=== PATIENT | female | born 1940 | race Caucasian/White ===

== ENCOUNTER 2016-08-05 10:32 | Emergency (ER) | payer MEDICARE ==
--- NOTE | 2016-08-05 10:47 | ER Document Report ---
ED Medical Screen (RME) - General Chief Complaint: Leg Swelling Stated Complaint: LEG SWELLING/PITTING/LEAKING FLUID Time seen by provider: 10:44 Mode of Arrival: Ambulatory Information source: Patient Notes: 75 yo female presents to ed for fluid draining out of her legs , pitting edema. with a history of this in the past. TRAVEL OUTSIDE OF THE [place] IN LAST 30 DAYS: No - HPI Onset: Other - legs started leaking last night Onset/Duration: Persistent Quality of pain: Dull - back pain Severity: Moderate Pain Level: 4 Associated Symptoms: Other - back pain Exacerbated by: Denies Relieved by: Denies Similar symptoms previously: Yes Recently seen / treated by doctor: No - Related Data Smoking: Non-smoker Frequency of alcohol use: None Drug Abuse: None Allergies/Adverse Reactions: No Known Drug Allergies Allergy (Verified 06/24/13 13:14) Past Medical History - Past Medical History Cardiac Medical History: Reports: Hx Coronary Artery Disease, Hx Hypercholesterolemia, Hx Hypertension Denies: Hx Heart Attack Pulmonary Medical History: Denies: Hx Asthma, Hx Bronchitis, Hx COPD, Hx Pneumonia Neurological Medical History: Denies: Hx Cerebrovascular Accident, Hx Seizures GI Medical History: Reports: Hx Gastroesophageal Reflux Disease, Hx Ulcer Musculoskeltal Medical History: Reports Hx Arthritis Past Surgical History: Reports: Hx Cholecystectomy, Hx Hysterectomy, Hx Orthopedic Surgery - back surery - Immunizations Hx Diphtheria, Pertussis, Tetanus Vaccination: No Physical Exam - Vital signs Vitals: Temp Pulse Resp BP Pulse Ox 97.9 F 75 18 126/91 H 95 08/05/16 10:41 08/05/16 10:41 08/05/16 10:41 08/05/16 10:41 08/05/16 10:41 Course - Vital Signs Vital signs: Temp Pulse Resp BP Pulse Ox 97.9 F 75 18 126/91 H 95 08/05/16 10:41 08/05/16 10:41 08/05/16 10:41 08/05/16 10:41 08/05/16 10:41
[2016-08-05 11:37] LABS: APPEARANCE,URINE CLEAR; BILIRUBIN,URINE NEGATIVE (NEGATIVE); GLUCOSE, URINE NEGATIVE (NEGATIVE); KETONES,URINE NEGATIVE (NEGATIVE); LEUKOCYTE ESTERASE,URINE SMALL (NEGATIVE); NITRITE,URINE NEGATIVE (NEGATIVE); PROTEIN,URINE NEGATIVE (NEGATIVE); URINE SPECIFIC GRAVITY 1.009; UROBILINOGEN,URINE NEGATIVE mg/dL (<2.0)
[2016-08-05 12:00] LABS: ABSOLUTE BASOPHILS # (AUTO) 0.1 10^3/uL (0.0-0.2); ABSOLUTE EOSINOPHILS # (AUTO) 0.4 10^3/uL (0.0-0.6); ABSOLUTE MONOCYTES (AUTO) 0.9 10^3/uL (0.1-1.4); ABSOLUTE NEUT (AUTO) 2.8 10^3/uL (1.7-8.2); BASOPHILS % (AUTO) 1.5 % (0-2); HEMATOCRIT 34.2 % (36.0-47.0); HEMOGLOBIN 11.2 g/dL (12.0-15.5); HGB HCT DIFFERENCE -0.6; LYMPHOCYTES % (AUTO) 32.4 % (13-45); MEAN CORPUSCULAR HEMOGLOBIN 28.6 pg (27.0-33.4); MEAN CORPUSCULAR HGB CONC 32.7 g/dL (32.0-36.0); MEAN CORPUSCULAR VOLUME 88 fl (80-97); MONOCYTES % (AUTO) 14.4 % (3-13); RED BLOOD COUNT 3.91 10^6/uL (3.72-5.28); RED CELL DISTRIBUTION WIDTH 15.8 % (11.5-14.0); SEGMENTED NEUTROPHILS % (AUTO) 45.7 % (42-78); WHITE BLOOD COUNT 6.1 10^3/uL (4.0-10.5)
[2016-08-05 12:11] LABS: ALANINE AMINOTRANSFERASE 30 U/L (9-52); ALBUMIN 4.3 g/dL (3.5-5.0); ALKALINE PHOSPHATASE 77 U/L (38-126); ANION GAP 12 (5-19); ASPARTATE AMINO TRANSFERASE 27 U/L (14-36); BILIRUBIN,TOTAL 0.4 mg/dL (0.2-1.3); BLOOD UREA NITROGEN 17 mg/dL (7-20); CALCIUM 10.1 mg/dL (8.4-10.2); CARBON DIOXIDE 27 mmol/L (22-30); CHLORIDE 102 mmol/L (98-107); CREATININE RESULT 1.23 mg/dL (0.52-1.25); GLUCOSE 84 mg/dL (75-110); POTASSIUM 4.7 mmol/L (3.6-5.0); SODIUM 141.3 mmol/L (137-145); TOTAL PROTEIN 7.3 g/dL (6.3-8.2)
--- NOTE | 2016-08-05 14:07 | ER Document Report ---
ED General - General Chief Complaint: Edema Stated Complaint: LEG SWELLING Mode of Arrival: Ambulatory TRAVEL OUTSIDE OF THE [place] IN LAST 30 DAYS: No - HPI Patient complains to provider of: leg swelling weeping of fluid Notes: Patient with a history of [place] states that now fluids weeping our legs. Patient points to 2 small areas bilateral legs less than half a centimeter with very minimal loss of fluids. Patient states not been compliant with elevating her legs not been compliant with her Lasix denies shortness of breath denies recent travel. Referred to the ER by PCP - Related Data Allergies/Adverse Reactions: No Known Drug Allergies Allergy (Verified 08/05/16 11:00) Past Medical History - General Information source: Patient - Social History Smoking Status: Former Smoker Chew tobacco use (# tins/day): No Frequency of alcohol use: None Drug Abuse: None Family History: Reviewed & Not Pertinent Patient has suicidal ideation: No Patient has homicidal ideation: No - Past Medical History Cardiac Medical History: Reports: Hx Coronary Artery Disease, Hx Hypercholesterolemia, Hx Hypertension Denies: Hx Heart Attack Pulmonary Medical History: Denies: Hx Asthma, Hx Bronchitis, Hx COPD, Hx Pneumonia Neurological Medical History: Denies: Hx Cerebrovascular Accident, Hx Seizures GI Medical History: Reports: Hx Gastroesophageal Reflux Disease, Hx Ulcer Musculoskeltal Medical History: Reports Hx Arthritis Past Surgical History: Reports: Hx Cholecystectomy, Hx Hysterectomy, Hx Orthopedic Surgery - back surery - Immunizations Hx Diphtheria, Pertussis, Tetanus Vaccination: Yes Hx Pneumococcal Vaccination: 08/01/09 Review of Systems - Review of Systems Constitutional: No symptoms reported EENT: No symptoms reported Cardiovascular: No symptoms reported Respiratory: No symptoms reported Gastrointestinal: No symptoms reported Genitourinary: No symptoms reported Female Genitourinary: No symptoms reported Musculoskeletal: Leg swelling Skin: No symptoms reported Hematologic/Lymphatic: No symptoms reported Neurological/Psychological: No symptoms reported -: Yes All other systems reviewed and negative Physical Exam - Vital signs Vitals: Temp Pulse Resp BP Pulse Ox 97.9 F 75 18 126/91 H 95 08/05/16 10:41 08/05/16 10:41 08/05/16 10:41 08/05/16 10:41 08/05/16 10:41 Interpretation: Normal - General General appearance: Appears well, Alert - HEENT Head: Normocephalic, Atraumatic Eyes: Normal Pupils: PERRL - Respiratory Respiratory status: No respiratory distress Chest status: Nontender Breath sounds: Normal Chest palpation: Normal - Cardiovascular Rhythm: Regular Heart sounds: Normal auscultation Murmur: No - Abdominal Inspection: Normal Distension: No distension Bowel sounds: Normal Tenderness: Nontender Organomegaly: No organomegaly - Back Back: Normal, Nontender - Extremities General upper extremity: Normal inspection, Nontender, Normal color, Normal ROM , Normal temperature General lower extremity: Normal inspection, Nontender, Edema - Bilateral pitting edema right greater than left right approximately 2+ left 1+ the right leg does have increased swelling along the calf to is well bilateral calf tenderness., Normal color, Normal ROM, Normal temperature, Normal weight bearing - Neurological Neuro grossly intact: Yes Cognition: Normal Orientation: AAOx4 Gianluca Coma Scale Eye Opening: Spontaneous [place] Coma Scale Verbal: Oriented Gianluca Coma Scale Motor: Obeys Commands [place] Coma Scale Total: 15 Speech: Normal Motor strength normal: LUE, RUE, LLE, RLE Sensory: Normal - Psychological Associated symptoms: Normal affect, Normal mood - Skin Skin Temperature: Warm Skin Moisture: Dry Skin Color: Normal Course - Re-evaluation Re-evalutation: 08/05/16 16:20 Dopplers negative for DVT. Basic lab work negative for any acute pathology. Patient was educated about increasing her Lasix and the proper diet. Patient states understanding compression stockings giving patient with discharged home. - Vital Signs Vital signs: Temp Pulse Resp BP Pulse Ox 98.4 F 65 20 112/56 L 97 08/05/16 14:19 08/05/16 14:19 08/05/16 14:19 08/05/16 14:19 08/05/16 14:19 - Laboratory Result Diagrams: 08/05/16 11:40 08/05/16 11:40 Laboratory results interpreted by me: 08/05/16 08/05/16 08/05/16 11:06 11:40 11:40 Hgb 11.2 L Hct 34.2 L RDW 15.8 H Monocytes % 14.4 H Est GFR ( Amer) 52 L Est GFR (Non-Af Amer) 43 L Ur Leukocyte Esterase SMALL H Discharge - Discharge Clinical Impression: Peripheral edema Condition: Good Disposition: HOME, SELF-CARE Instructions: Edema, Peripheral ([facility]) Additional Instructions: I would increase your Lasix to 20 mg twice a day for the next 3 days and return to her normal schedule of 20 mg once a day. Your lab work and Doppler studies showed no acute pathology. Please make sure that she follow-up with your PCP. Prescriptions: Compression Socks, Medium [Futuro Restoring] 1 each MC DAILY #1 each Furosemide [Lasix 20 mg Tablet] 20 mg PO BID #6 tablet Forms: Return to Work Referrals: LAUREANO FARRELL MD [Primary Care Provider] - Follow up as needed
[2016-08-05 14:24] VITALS: BP 112/56
--- NOTE | 2016-08-05 16:41 | XCELERA REPORT ---
[address] [address] Lower Extremity Venous Evaluation Name: RYAN PÉREZ Age: 75 yrs Gender: Female : 1940 Patient Status: Emergency Patient Location: ER Study Date: 08/05/2016 01:06 PM Procedure: Color flow and duplex imaging bilaterally of the veins of the lower extremities as well as the Common Femoral veins. Reason For Study: bilateral leg pain swelling Ordering Physician: VIRGINIE SANTAMARIA Performed By: Rj Pickens Right Sided Venous Evaluation Normal vessel filling wall to wall, compression and augmentation as well as Colour flow down to the infrageniculate veins. Left Sided Venous Evaluation Normal vessel filling wall to wall, compression and augmentation as well as Colour flow down to the infrageniculate veins. Critical Findings Called in to Akilah Rosales in the ER at about 1400. Interpretation Summary No duplex evidence of DVT or obstruction in the bilateral lower extremities. : VIRGINIE SANTAMARIA > Eb Potter
== END 2016-08-05 14:24 | disposition home or self-care (01) ==
LOC: ER 10:32
DX: R60.0 Localized edema (principal); M79.89 Other specified soft tissue disorders; Z87.891 Personal history of nicotine dependence
CPT/HCPCS: 36415; 80053; 81001; 85025; 93970; 99284

== ENCOUNTER → 2016-10-28 | Outpatient (CLI) | payer MEDICARE ==
--- NOTE | 2016-10-28 21:57 | XCELERA REPORT ---
[address] [address] Transthoracic Echocardiogram Report Name: RYAN PÉREZ Age: 76 yrs Gender: Female : 1940 Patient Status: Outpatient Patient Location: Study Date: 10/28/2016 07:55 AM Height: 65 in Weight: 198 lb BSA: 2.0 m2 Procedure: A complete two-dimensional transthoracic echocardiogram was performed (2D, M-mode, spectral and color flow Doppler). The study was technically difficult with many images being suboptimal in quality. Reason For Study: AI Ordering Physician: KIMBERLY RENEE PA-C Performed By: Rosalie James Interpretation Summary The left ventricular ejection fraction is normal. Doppler measurements suggest pseudonormalized left ventricular relaxation, which is associated with grade II/IV or mild to moderate diastolic dysfunction There is borderline concentric left ventricular hypertrophy. The left ventricle is grossly normal size. Wall motion cannot be accurately commented on, but no definite regional wall motion abnormalities noted. The right ventricle is mildly dilated. The right ventricle appears to be hypertrophied The right ventricular systolic function is normal. The right atrium is mildly dilated. The left atrium is borderline dilated. There is no mitral valve stenosis. There is a mild amount of mitral regurgitation There is moderate aortic stenosis There is a peak gradient of 40 mean 20 mm of Hg. There is a mild to moderate amount of aortic regurgitation There is a trace to mild amount of tricuspid regurgitation There is mild pulmonary hypertension by echo Right ventricular systolic pressure is estimated to be elevated at 30- 40mmHg. There is no pericardial effusion. MMode/2D Measurements \T\ Calculations RVDd: 3.8 cm LVIDd: 4.4 cm FS: 47.3 % Ao root diam: 2.6 cm IVSd: 0.82 cm LVIDs: 2.3 cm EDV(Teich): 87.8 ml LVPWd: 0.73 cmESV(Teich): 18.5 ml Ao root area: 5.2 cm2 EF(Teich): 78.9 % LA dimension: 3.6 cm LVOT diam: 1.8 cm LVOT area: 2.7 cm2 Doppler Measurements \T\ Calculations MV E max darby: MV P1/2t max darby: Ao V2 max: AI max darby: 123.9 cm/sec 123.9 cm/sec 313.7 cm/sec 435.9 cm/sec MV A max darby: MV P1/2t: 66.3 msec Ao max PG: AI max P.0 cm/sec MVA(P1/2t): 3.3 cm2 39.4 mmHg 76.0 mmHg MV E/A: 1.1 MV dec slope: Ao V2 mean: AI dec slope: 547.6 cm/sec2 206.6 cm/sec 223.6 cm/sec2 Ao mean PG: AI P1/2t: 19.6 mmHg 570.8 msec Ao V2 VTI: 72.7 cm LEYLA(I,D): 1.2 cm2 LEYLA(V,D): 1.1 cm2 LV V1 max PG: SV(LVOT): 89.1 ml PA V2 max: TR max darby: 7.4 mmHg 79.0 cm/sec 274.2 cm/sec LV V1 mean PG: PA max PG: TR max P.7 mmHg 2.5 mmHg 30.1 mmHg LV V1 max: 135.7 cm/sec LV V1 mean: 89.2 cm/sec LV V1 VTI: 33.6 cm Left Ventricle The left ventricle is grossly normal size. There is borderline concentric left ventricular hypertrophy. The left ventricular ejection fraction is normal. Doppler measurements suggest pseudonormalized left ventricular relaxation, which is associated with grade II/IV or mild to moderate diastolic dysfunction. Wall motion cannot be accurately commented on, but no definite regional wall motion abnormalities noted. Right Ventricle The right ventricle is mildly dilated. The right ventricle appears to be hypertrophied. The right ventricular systolic function is normal. Atria The right atrium is mildly dilated. The left atrium is borderline dilated. Interarterial septum not well visualized and not well dopplered. Cannot comment on ASD/PFO presence. Mitral Valve There is moderate mitral annular calcification. There is no mitral valve stenosis. There is a mild amount of mitral regurgitation. Aortic Valve The aortic valve is moderately calcified. There is moderate aortic stenosis. There is a peak gradient of 40 mean 20 mm of Hg. There is a mild to moderate amount of aortic regurgitation. Tricuspid Valve The tricuspid valve is not well visualized secondary to technical limitations. There is no tricuspid stenosis. There is a trace to mild amount of tricuspid regurgitation. There is mild pulmonary hypertension by echo. Right ventricular systolic pressure is estimated to be elevated at 30-40mmHg. Pulmonic Valve The pulmonic valve is not well visualized. Great Vessels The aortic root is not well visualized but is probably normal size. The inferior vena cava appeared normal and decreased > 50% with respiration (RAP 5-10 mmHg). Effusions There is no pericardial effusion. : KIMBERLY RENEE PA-C > Safia Kincaid
== END ==
LOC: SP 07:47
PROVIDERS: ATTEND Physician Assistant
DX: I35.1 Nonrheumatic aortic (valve) insufficiency (principal)
CPT/HCPCS: 93306

== ENCOUNTER → 2017-01-07 | Outpatient (CLI) | payer MEDICARE ==
--- NOTE | 2017-01-07 08:36 | RADIOLOGY REPORT (SQ) ---
EXAM DESCRIPTION: LUMBAR SPINE COMPLETE COMPLETED DATE/TIME: 01/07/2017 8:17 am REASON FOR STUDY: OTHER INTERVERTEBRAL DISC DEGENERATION, LUMBAR REGION M51.36 OTHER INTERVERTEBRAL DISC DEGENERATION, LUMBAR REGION COMPARISON: 09/12/2014 NUMBER OF VIEWS: Five views including obliques. TECHNIQUE: AP, lateral, oblique, and sacral radiographic images acquired of the lumbar spine. LIMITATIONS: None. FINDINGS: MINERALIZATION: Normal. SEGMENTATION: Normal. No transitional anatomy. ALIGNMENT: There is anterolisthesis of L4 on L5 this is unchanged. VERTEBRAE: Maintained height. No fracture or worrisome bone lesion. DISCS: There is multilevel disc space narrowing as well as endplate changes. POSTERIOR ELEMENTS: Pedicles and facets are intact. No pars defect or posterior arch defects. HARDWARE: There are postsurgical changes at the 4 5 level with pedicle screws in place. PARASPINAL SOFT TISSUES: Normal. PELVIS: Intact as visualized. No fractures or worrisome bone lesions. SI joints intact. OTHER: No other significant finding. IMPRESSION: Postsurgical and degenerative changes throughout the lumbar spine. No acute findings. TECHNICAL DOCUMENTATION: JOB ID: [id number] [employer]- All Rights Reserved
== END ==
LOC: OD 07:58
PROVIDERS: ATTEND Pain Medicine Pain Medicine
DX: M51.36 Other intervertebral disc degeneration, lumbar region (principal)
CPT/HCPCS: 72110

== ENCOUNTER → 2017-01-10 | Outpatient (CLI) | payer MEDICARE ==
[2017-01-10 09:20] LABS: ABSOLUTE BASOPHILS # (AUTO) 0.1 10^3/uL (0.0-0.2); ABSOLUTE EOSINOPHILS # (AUTO) 0.7 10^3/uL (0.0-0.6); ABSOLUTE LYMPHOCYTES (AUTO) 1.9 10^3/uL (0.5-4.7); ABSOLUTE MONOCYTES (AUTO) 0.7 10^3/uL (0.1-1.4); ABSOLUTE NEUT (AUTO) 3.2 10^3/uL (1.7-8.2); EOSINOPHILS % (AUTO) 10.2 % (0-6); HEMATOCRIT 36.9 % (36.0-47.0); HEMOGLOBIN 11.9 g/dL (12.0-15.5); HGB HCT DIFFERENCE -1.2; LYMPHOCYTES % (AUTO) 29.9 % (13-45); MEAN CORPUSCULAR HEMOGLOBIN 30.5 pg (27.0-33.4); MEAN CORPUSCULAR HGB CONC 32.3 g/dL (32.0-36.0); MEAN CORPUSCULAR VOLUME 95 fl (80-97); MONOCYTES % (AUTO) 10.6 % (3-13); RED BLOOD COUNT 3.91 10^6/uL (3.72-5.28); RED CELL DISTRIBUTION WIDTH 15.4 % (11.5-14.0); SEGMENTED NEUTROPHILS % (AUTO) 48.3 % (42-78); WHITE BLOOD COUNT 6.5 10^3/uL (4.0-10.5)
[2017-01-10 09:48] LABS: ALBUMIN 4.1 g/dL (3.5-5.0); ANION GAP 11 (5-19); BLOOD UREA NITROGEN 23 mg/dL (7-20); CALCIUM 10.2 mg/dL (8.4-10.2); CARBON DIOXIDE 25 mmol/L (22-30); CHLORIDE 106 mmol/L (98-107); CREATININE RESULT 1.12 mg/dL (0.52-1.25); GLUCOSE 96 mg/dL (75-110); PHOSPHORUS 3.7 mg/dL (2.5-4.5); POTASSIUM 5.1 mmol/L (3.6-5.0); SODIUM 142.2 mmol/L (137-145)
[2017-01-10 09:54] LABS: APPEARANCE,URINE CLEAR; BILIRUBIN,URINE NEGATIVE (NEGATIVE); GLUCOSE, URINE NEGATIVE (NEGATIVE); KETONES,URINE NEGATIVE (NEGATIVE); LEUKOCYTE ESTERASE,URINE SMALL (NEGATIVE); NITRITE,URINE NEGATIVE (NEGATIVE); PROTEIN,URINE NEGATIVE (NEGATIVE); URINE SPECIFIC GRAVITY 1.013; UROBILINOGEN,URINE NEGATIVE mg/dL (<2.0)
[2017-01-10 10:31] LABS: URINE CREATININE 23.8 mg/dL (15-278)
[2017-01-10 10:38] LABS: CREATININE 1.12 mg/dL (0.52-1.25)
[2017-01-11 08:04] LABS: VITAMIN D 25-HYDROXY 22.5 ng/mL (30.0-100.0)
[2017-01-11 14:41] LABS: ALBUMIN 3 3.7 g/dL (2.9-4.4); ALPHA-1-GLOBULIN 0.3 g/dL (0.0-0.4); ALPHA-2-GLOBULIN 3 0.7 g/dL (0.4-1.0); BETA GLOBULIN 1.2 g/dL (0.7-1.3); GLOBULIN TTL 3.2 g/dL (2.2-3.9); IMMUNOGLOBULIN A 229 mg/dL (64-422); IMMUNOGLOBULIN G 1077 mg/dL (700-1600); IMMUNOGLOBULIN M 61 mg/dL (26-217); MONOCLONAL-SPIKE Not Observed g/dL (Not Observed); PROTEIN TOTAL SERUM 6.9 g/dL (6.0-8.5)
[2017-01-12 17:37] LABS: M-SPIKE % URINE Not Observed % (Not Observed); PROTEIN TOTAL UR 24HR <8 mg/24 hr (30-150)
== END ==
LOC: OD 08:08
PROVIDERS: ATTEND Internal Medicine Nephrology
DX: N18.3 Chronic kidney disease, stage 3 (moderate) (principal)
CPT/HCPCS: 36415; 80069; 81001; 82306; 82575; 83970; 84156; 84166; 85025; 86320; 86325

== ENCOUNTER 2017-09-15 07:53 | Day surgery (SDC) | payer MEDICARE, MEDICAID ==
[2017-09-15 09:10] LABS: INTERNATIONAL RATION (INR) 1.08; PARTIAL THROMBOPLASTIN TIME 30.3 SEC (23.5-35.8); PROTHROMBIN TIME 14.8 SEC (11.4-15.4)
--- NOTE | 2017-09-15 11:29 | RADIOLOGY REPORT (SQ) ---
EXAM DESCRIPTION: MYELOGRAM LUMBAR; CT LUMBAR SPINE WITH COMPLETED DATE/TIME: 09/15/2017 11:05 am; 09/15/2017 11:11 am REASON FOR STUDY: RADICULOPATHY LUMBAR REGION M54.16 RADICULOPATHY, LUMBAR REGION Z79.01 ALF (CURRENT) USE OF ANTICOAGULANTS COMPARISON: None. FLUOROSCOPY TIME: 1.4 minutes TECHNIQUE: Fluoroscopic guided lumbar myelogram. LIMITATIONS: None. PROCEDURE: After written consent and assessment were obtained, the patient was brought into the fluo roscopy room and placed prone on the table. The patient's lower back was prepped in a sterile fashio n and an entry site was selected under live fluoroscopic guidance. The entry site was anesthetized wi th 1% lidocaine. The spinal needle was advanced through the skin and into the thecal sac at the level of L3-4. Contrast was injected into the thecal sac. Following the procedure the needle was removed and a sterile bandage was placed of the site. CONTRAST: 14 mL Isovue 200M. IMAGES ACQUIRED: Multiple fluoroscopic and lateral plain film. TECHNIQUE: After performing lumbar myelogram, axial images were acquired through the lumbar spine wi thout intravenous contrast. Images reviewed with lung, soft tissue and bone windows. Reconstructed coronal and sagittal MPR images reviewed. All images stored on PACS. All CT scanners at this facility use dose modulation, iterative reconstruction, and/or weight based d osing when appropriate to reduce radiation dose to as low as reasonably achievable (ALARA). [facility]: Dose Right [facility]: CareDose [facility]: Dose Right [facility]: Teradose 4D [facility]: [employer] FINDINGS: Fluoroscopic images demonstrate prior posterior decompression and fusion L4-5. Deviation of the contrast column consistent with mild spinal stenosis at L2- 3 and L3-4. No instability on f lexion and extension. CT images demonstrate a mild S-shaped scoliosis. Grade 1 anterolisthesis of L4 relative to L5. At L 1-2, there is disc bulging without significant stenosis. At L2-3, there is mild -moderate spinal stenosis due to disc osteophyte complex and facet arthropathy . Vacuum disc and chronic endplate change. At L3-4, there is disc space narrowing and vacuum disc. Mild -moderate spinal stenosis. At L4- 5 there has been posterior decompression. The canal is widely patent. L5-S1 there is disc space narrowing, vacuum disc and chronic endplate change. Mild spinal stenosis d ue associated with bulging disc and facet arthropathy. IMPRESSION: Spondylosis, facet arthropathy and malalignment. Mild -moderate spinal stenosis L2-3 an d L3-4 status post posterior decompression L4-5. COMMENT: Patient medication list reviewed: Yes- Quality ID# [id number]:Eligible professional attests to doc umenting in the medical record they obtained, updated, or reviewed the patient's current medications. TECHNICAL DOCUMENTATION: JOB ID: [id number] Quality ID # [id number]: Final reports with documentation of one or more dose reduction techniques (e.g., Au tomated exposure control, adjustment of the mA and/or kV according to patient size, use of iterative reconstruction technique) 2010 [employer]- All Rights Reserved
--- NOTE | 2017-09-15 11:29 | RADIOLOGY REPORT (SQ) ---
EXAM DESCRIPTION: MYELOGRAM LUMBAR; CT LUMBAR SPINE WITH COMPLETED DATE/TIME: 09/15/2017 11:05 am; 09/15/2017 11:11 am REASON FOR STUDY: RADICULOPATHY LUMBAR REGION M54.16 RADICULOPATHY, LUMBAR REGION Z79.01 [facility] (CURRENT) USE OF ANTICOAGULANTS COMPARISON: None. FLUOROSCOPY TIME: 1.4 minutes TECHNIQUE: Fluoroscopic guided lumbar myelogram. LIMITATIONS: None. PROCEDURE: After written consent and assessment were obtained, the patient was brought into the fluo roscopy room and placed prone on the table. The patient's lower back was prepped in a sterile fashio n and an entry site was selected under live fluoroscopic guidance. The entry site was anesthetized wi th 1% lidocaine. The spinal needle was advanced through the skin and into the thecal sac at the level of L3-4. Contrast was injected into the thecal sac. Following the procedure the needle was removed and a sterile bandage was placed of the site. CONTRAST: 14 mL Isovue 200M. IMAGES ACQUIRED: Multiple fluoroscopic and lateral plain film. TECHNIQUE: After performing lumbar myelogram, axial images were acquired through the lumbar spine wi thout intravenous contrast. Images reviewed with lung, soft tissue and bone windows. Reconstructed coronal and sagittal MPR images reviewed. All images stored on PACS. All CT scanners at this facility use dose modulation, iterative reconstruction, and/or weight based d osing when appropriate to reduce radiation dose to as low as reasonably achievable (ALARA). [facility]: Dose Right [facility]: CareDose [facility]: Dose Right [facility]: Teradose 4D [facility]: [employer] FINDINGS: Fluoroscopic images demonstrate prior posterior decompression and fusion L4-5. Deviation of the contrast column consistent with mild spinal stenosis at L2- 3 and L3-4. No instability on f lexion and extension. CT images demonstrate a mild S-shaped scoliosis. Grade 1 anterolisthesis of L4 relative to L5. At L 1-2, there is disc bulging without significant stenosis. At L2-3, there is mild -moderate spinal stenosis due to disc osteophyte complex and facet arthropathy . Vacuum disc and chronic endplate change. At L3-4, there is disc space narrowing and vacuum disc. Mild -moderate spinal stenosis. At L4- 5 there has been posterior decompression. The canal is widely patent. L5-S1 there is disc space narrowing, vacuum disc and chronic endplate change. Mild spinal stenosis d ue associated with bulging disc and facet arthropathy. IMPRESSION: Spondylosis, facet arthropathy and malalignment. Mild -moderate spinal stenosis L2-3 an d L3-4 status post posterior decompression L4-5. COMMENT: Patient medication list reviewed: Yes- Quality ID# [id number]:Eligible professional attests to doc umenting in the medical record they obtained, updated, or reviewed the patient's current medications. TECHNICAL DOCUMENTATION: JOB ID: [id number] Quality ID # [id number]: Final reports with documentation of one or more dose reduction techniques (e.g., Au tomated exposure control, adjustment of the mA and/or kV according to patient size, use of iterative reconstruction technique) 2010 [employer]- All Rights Reserved
[2017-09-15 13:25] VITALS: BP 115/55
== END 2017-09-15 13:15 | disposition home or self-care (01) ==
LOC: RAD 07:53
PROVIDERS: ATTEND Physician Assistant
PROC: B01BYZZ Fluoroscopy of Spinal Cord using Other Contrast (ICD-10-PCS; principal; 2017-09-15)
DX: M54.16 Radiculopathy, lumbar region (principal); Z79.01 Long term (current) use of anticoagulants
CPT/HCPCS: 36415; 72132; 72265; 85610; 85730